=== PATIENT | female | born 1990 | race African-American/Black ===

== ENCOUNTER 2020-03-30 15:05 | Outpatient (RCR) | payer OTHER, SELFPAY ==
--- NOTE | ~2020-03-30 | US_ITS ---
US OB limited 03/30/2020 17:10 Indication: Evaluate amniotic fluid index. Decreased movements. Procedure: Real-time Limited obstetrical ultrasound using transabdominal technique Comparison: No prior studies for comparison. Findings: There is a single living intrauterine and vertex presentation. Placenta is community ambassador ior/fundal without previa. Amniotic fluid index is normal measuring 9.7 cm. heart rate 142 BPM. Impression: 1: Single living intrauterine in vertex presentation. 2: Normal ADI measures 9.7 cm (normal range for gestational age is 8.8-23.8 cm). Reviewed, dictated and finalized at location A. Impression: 1: Single living intrauterine in vertex presentation. 2: Normal ADI measures 9.7 cm (normal range for gestational age is 8.8-23.8 cm ).
--- NOTE | 2020-03-30 17:41 | PC.NURSE ---
Called ADI results to Dr. Verma.
[2020-03-30 18:28] VITALS: PULSE 88
== END 2020-05-24 15:20 | disposition home or self-care (01) ==
LOC: ANHOBOP 15:05
PROVIDERS: Visit Provider Obstetrics & Gynecology
DX: O36.8130 Decreased fetal movements, third trimester, not applicable or unspecified (principal); Z3A.31 31 weeks gestation of pregnancy
CPT/HCPCS: 59025; 76815

== ENCOUNTER 2020-04-26 16:26 | Observation (INO) | payer OTHER, SELFPAY ==
--- NOTE | 2020-04-26 16:26 | OBADM ---
This patient, Daniella Jackson, admitted to the OB room OB Post 116 for observation. Patient/family oriented to hospital policies and general routines including ID bracelet, bed and alarms, visiting hours, pain management, procedures, bathroom and other care routines, personal items, smoking policy, room service/diet, and visiting hours. Patient/Family are encouraged to report perceived risks to care and to ask questions if they do not understand what they are told or what they should do.
[2020-04-26 16:50] VITALS: BP 123/53; PULSE 97
[2020-04-26 19:11] VITALS: BMI 35.9
--- NOTE | 2020-05-17 14:09 | PM.OBTRLD ---
OB - Triage/Final Diagnosis Final Diagnosis (1) Abdominal pain affecting : Code(s): O26.899 - Other specified related conditions, unspecified trimester; R10.9 - Unspecified abdominal pain Status: Acute
== END 2020-04-26 20:41 | disposition home or self-care (01) ==
PROVIDERS: Admitting Provider Obstetrics & Gynecology; Visit Provider Student in an Organized Health Care Education/Training Program
DX: R10.9 Unspecified abdominal pain (principal); O26.899 Other specified pregnancy related conditions, unspecified trimester; Z3A.00 Weeks of gestation of pregnancy not specified
CPT/HCPCS: 84112; G0378; G0379

== ENCOUNTER 2020-05-04 11:57 | Outpatient (CLI) | payer OTHER, SELFPAY ==
--- NOTE | ~2020-05-04 | US_ITS ---
EXAMINATION: US OB limited DATE: 05/04/2020 13:54 INDICATION: Acute renal insufficiency TECHNIQUE: Real-time ultrasound of the pelvis was performed. The interpreting radiologist was not pre sent for the study. COMPARISON: None. FINDINGS: There is a single living fetus in vertex presentation. The placenta is anterior. heart rate is 145 beats per minute (bpm). The amniotic fluid index is 16.1 cm, which is normal (5th%-95%: 7.7-24.9 cm at 36 weeks estimated gestational age). IMPRESSION: 1. Single living fetus in vertex presentation with heart rate of 145 bpm. 2. Normal amniotic fluid index of 16.1 cm. Reviewed, dictated and finalized at location B.
[2020-05-04 12:20] VITALS: TEMP 36.9
[2020-05-04 14:12] VITALS: BP 120/68; PULSE 94
== END 2020-05-04 14:12 | disposition home or self-care (01) ==
LOC: ANHOBOP 13:22 → ANHLDR 13:24
PROVIDERS: Visit Provider Obstetrics & Gynecology
DX: O42.90 Premature rupture of membranes, unspecified as to length of time between rupture and onset of labor, unspecified weeks of gestation (principal); Z3A.00 Weeks of gestation of pregnancy not specified
CPT/HCPCS: 59025; 76815; 84112; 99199

== ENCOUNTER 2020-05-22 05:22 | Inpatient (IN) | payer OTHER, SELFPAY ==
[2020-05-22] VITALS (54 sets, daily range): BP systolic 93–132; BP diastolic 56–84; PULSE 58–112; RESP 16–18; TEMP 36.1–37; O2SAT 93–100; BMI 35.6
--- NOTE | 2020-05-22 05:22 | LDADM ---
This patient, Daniella Jackson, was admitted to Labor/Delivery/Recovery 120 on 05/22/20 at 05:22. Plans for labor, pain management and were discussed with patient. Patient/family oriented to hospital policies and general routines including ID bracelet, bed and alarms, visiting hours, pain management, procedures, bathroom and other care routines, personal items, smoking policy, room service/diet and guest tray routines, infant security routines, and visiting hours. Patient/Family are encouraged to report perceived risks to care and to ask questions if they do not understand what they are told or what they should do. See OBIX for further documentation.
[2020-05-22 06:10] LABS: Basophils Percent Auto 0.3 % (0.2-1.2); Eosinophils Absolute Auto 0.1 K/mm3 (0-0.3); Eosinophils Percent Auto 0.8 % (0-4.4); Hematocrit 35.8 % (37.0-47.0); Hemoglobin 11.5 g/dL (12.0-15.0); Immature Granulocyte Absolute 0.17 K/mm3 (0.00-0.031); Immature Granulocyte Percent A 1.4 % (0-0.5); Immature Platelet Fraction Pct 13.4 % (0.9-11.2); Lymphocytes Absolute Auto 2.82 K/mm3 (0.9-3.2); Lymphocytes Percent Auto 23.6 % (18.3-44.2); Mean Corpuscular HGB Conc 32.1 g/dl (32-36); Mean Corpuscular Hemoglobin 23.3 pg (26-34); Mean Corpuscular Volume 72.5 fl (80-100); Monocytes Absolute Auto 0.8 K/mm3 (0.1-0.6); Monocytes Percent Auto 6.7 % (2.6-8.5); Neutrophils Absolute Auto 8.1 K/mm3 (1.3-6.7); Neutrophils Percent Auto 67.2 % (45.5-73.1); Platelet Count Result 140 k/mm3 (150-375); Red Blood Count 4.94 M/mm3 (4.2-5.4); Red Cell Distribution Width 14.2 % (11.5-14.5)
[2020-05-22] MEDS: LACTATED RINGERS 1,000 ML 125 ML IV CONT ×2 (06:15→07:17)
[2020-05-22 06:59] LABS: HIV 1/2 Ab P24 Ag Result Negative (Negative)
--- NOTE | 2020-05-22 07:07 | WPDANESEPPF ---
Anes - Initial Pre Proc Eval Procedure: Operation Date: 05/22/20 07:30 Proposed Procedures p Primary Section - Tejas Verma MD Date/Time: 05/22/20 07:07 Surgeon: Tejas Verma MD Pre Op Diagnosis: R C/S Patient Data Age: 30 Gender: F Height: 5 ft 5 in Weight: 97 kg Last Vital Signs Temp 36.6 C 05/22/20 06:00 Pulse 91 05/22/20 06:45 BP 116/68 05/22/20 06:45 Allergies Allergy/AdvReac Type Severity Reaction Status Date / Time No Known Allergies Allergy Unknown Uncoded 05/17/20 14:02 Home Medications Medication Instructions Recorded Confirmed Type vits 75-iron 28 mg-folic 1 pkg PO DAILY 10/05/19 05/22/20 History acid 800 mcg-omega-3 oral combo pack ferrous sulfate 325 mg (65 mg 325 mg PO DAILY #30 tablet 03/01/20 05/17/20 Rx iron) tablet valacyclovir 500 mg tablet 500 mg PO Q12H #60 tablet 05/04/20 05/22/20 Rx Laboratory Tests 05/22/20 05/22/20 05/22/20 05:55 05:55 05:55 WBC 12.0 K/mm3 H K/mm3 (4.5-10.0) RBC 4.94 M/mm3 M/mm3 (4.2-5.4) Hgb 11.5 g/dL L g/dL (12.0-15.0) Hct 35.8 % L % (37.0-47.0) MCV 72.5 fl L fl (80-100) MCH 23.3 pg L pg (26-34) MCHC 32.1 g/dl g/dl (32-36) RDW 14.2 % % (11.5-14.5) Plt Count 140 k/mm3 L k/mm3 (150-375) MPV TNP Immature Gran % (Auto) 1.4 % H % (0-0.5) Neut % (Auto) 67.2 % % (45.5-73.1) Lymph % (Auto) 23.6 % % (18.3-44.2) [place] % (Auto) 6.7 % % (2.6-8.5) Eos % (Auto) 0.8 % % (0-4.4) Baso % (Auto) 0.3 % % (0.2-1.2) Lymph # (Auto) 2.82 K/mm3 K/mm3 (0.9-3.2) [place] # (Auto) 0.8 K/mm3 H K/mm3 (0.1-0.6) Eos # (Auto) 0.1 K/mm3 K/mm3 (0-0.3) Baso # (Auto) 0.0 K/mm3 K/mm3 (0.0-0.1) Abs Immat Gran (auto) 0.17 K/mm3 H K/mm3 (0.00-0.031) Absolute Neuts (auto) 8.1 K/mm3 H K/mm3 (1.3-6.7) Absolute Nucleated RBC 0.0 K/mm3 K/mm3 (0.0-0.012) Nucleated RBC % 0.0 % % (0.0-0.2) % Immature Plt Fraction 13.4 % H % (0.9-11.2) RPR Pending HIV 1&2 Ab/P24 Ag 4thGn Negative (Negative) Patient hx anesthesia problems: none Family hx anesthesia problems: none PMFSH Past Medical History Medical History Abdominal pain affecting Genital herpes affecting Vaginal delivery Family History Family History Mother Hypertension Father Hypertension Grandparent Family history of type 2 diabetes mellitus Social History Social History Smoking status: Never smoker Second hand tobacco smoke exposure: No Alcohol intake: never Substance use: never Gender identity (if verbalized by the patient): Female Spiritual care concerns: No Anes - Eval Final PreProcedure Day of Procedure 05/22/20 07:07 Patient weight: obese Heart: regular rate and rhythm Lungs: clear to auscultation Airway: Mallampati scale class II Neurological: alert and oriented Last oral intake: >/= 8 hours ASA classification: II Emergent: no Anesthetic plan: proceed Anesthesia type and monitoring: regional spinal and standard monitoring Informed Consent: The patient's anesthetic plan and its attendant risks and benefits were discussed with the patient/family/POA. Questions were solicited and answers provided to the satisfaction of the patient/family/POA.
--- NOTE | 2020-05-22 07:16 | PM.IMHP ---
H&P: HPI History of Present Illness Date/Time: 05/22/20 07:16 Chief complaint: HSV prodromal symptoms Narrative: Daniella Jackson is a 30 year old female at 39 1/7 weeks with EDC 05/28/20. She presents for primary cesearean section due to history of HSV prodromal symptoms. She has a history of chronic vulvar inflammation. During this she had episode of severe vulvar inflammation and it only responded to the Valtrex which was given after antibody screen positive for HSV. The previous cultures have been negative. She was started on suppress at 36 weeks. She started having burning and irritation in the vulvar area last week. She was informed that this could be flare up of the chronic inflammation or possible HSV. She was informed of recommendation for ceseearean delivery if prodromal HSV symptoms or lesions within a week of delivery. She desires delivery via cesearean section. HSV culture was performed on lesions on and came back negative today. She does not want chance of baby getting HSV during delivery and desires primary cesearean section. Discussed risk benefits of cesearean section. PNC also significant for resistant UTI and resistant GBS in urine culture during the . She also has anemia of and has been taking iron supplementation. Review of Systems Review of Systems: All systems reviewed & are unremarkable except as noted in HPI and below Constitutional: Constitutional: Reports no additional constitutional complaints and Denies headache(s) Eyes: Eyes: Denies spots in vision ENT: Reports system reviewed and no additional complaints, except as documented and Denies headache(s) Cardiovascular: Cardiovascular: Denies chest pain and Denies dyspnea Respiratory: Respiratory: Denies dyspnea Gastrointestinal: Gastrointestinal: Reports no additional gastrointestinal complaints Genitourinary: Genitourinary: Reports amenorrhea Musculoskeletal: Musculoskeletal: Reports no additional musculoskeletal complaints Integumentary/Breasts: Skin/Breast: Denies breast mass and Denies rash Neurologic: Denies headache(s) Psychiatric: Psychiatric: Reports no additional psychiatric complaints PMF Past Medical History Medical History Abdominal pain affecting Genital herpes affecting Vaginal delivery Family History Family History Mother Hypertension Father Hypertension Grandparent Family history of type 2 diabetes mellitus Social History Social History Smoking status: Never smoker Second hand tobacco smoke exposure: No Alcohol intake: never Substance use: never Gender identity (if verbalized by the patient): Female Spiritual care concerns: No Meds Home Medications and Allergies Home Medications Medication Instructions Recorded Confirmed Type vits 75-iron 28 mg-folic 1 pkg PO DAILY 10/05/19 05/22/20 History acid 800 mcg-omega-3 oral combo pack ferrous sulfate 325 mg (65 mg 325 mg PO DAILY #30 tablet 03/01/20 05/17/20 Rx iron) tablet valacyclovir 500 mg tablet 500 mg PO Q12H #60 tablet 05/04/20 05/22/20 Rx Allergies Allergy/AdvReac Type Severity Reaction Status Date / Time No Known Allergies Allergy Unknown Uncoded 05/17/20 14:02 Vital Signs Vital Signs - 24 hr 05/22/20 06:00 05/22/20 06:02 05/22/20 06:16 Temperature 98 F Pulse Rate 98 99 Blood Pressure 112/56 L 114/78 05/22/20 06:31 05/22/20 06:45 05/22/20 07:07 Temperature 98.0 F Pulse Rate 86 91 Blood Pressure 95/75 L 116/68 Exam Const: General: no acute distress Eyes: General: appearance normal, both eyes and all related structures Resp: Effort & Inspection: normal respiratory effort Cardio: Rate: regular rate GI: Other: Gravid no fundal tenderness no right upper q
[2020-05-22] MEDS: ceFAZolin 2 GM/D5W 50 ML 2 GM/50 ML BAG IVPB (07:18)
[2020-05-22] MEDS: OXYTOCIN 30 UNITS/NS 500 ML 30 UNITS/500 ML BAG 125 UNITS IV CONT (10:29)
[2020-05-22 11:12] LABS: Rapid Plasma Reagin Non-Reactive (NonReactive)
[2020-05-22] MEDS: ONDANSETRON INJ 4 MG/2 ML VIAL IV PUSH (12:57)
--- NOTE | 2020-05-22 13:14 | PM.PROC ---
Procedure Note - Detailed Date of procedure: 05/22/20 Pre-op diagnosis: HSV prodromal symptoms Post-op diagnosis: same Procedure performed: Primary low transverse cesearean section Description of procedure: After informed consent was obtained patient was taken to the operating room and adequate spinal anesthesia was administered. She was placed in supine position and prepped and draped in sterile fashion. heart tones were auscultated prior to a drape. Attention was turned to the abdomen and a Pfannenstiehl skin incision was made.. The subcutaneous tissue was dissected with scalpel and cautery. The fascia was incised in the midline and extended bilaterally with Gracia scissors. The fascia was from rectus muscle superiorly and inferiorly bluntly and sharply. The midline was identified the midline and the peritoneum was entered. The pelvic organs were visualized. The lower uterine segment and vesico-uterine peritoneum was visualized. A bladder flap was made. The bladder was dissected from the lower uterine segment bluntly. A low-transverse uterine incision was made and the amniotic cavity was entered. Clear fluid noted. The uterine incsion was extended bluntly. The head was delivered and then the shoulders and the rest of the baby was delivered. The was vigorously crying upon delivery. The cord was doubly clamped and cut and the infant was handed to nursery staff in attendance. Cord segment was obtained for cord gases. Cord blood was obtained. The placenta was removed manually. The uterine cavity was sponge curetted. The uterus was noted to have good tone. The uterus was exteriorized and the incision of the uterus was closed in a running locking fashion with 0 Vicryl. Figure of eight stitch with 0 Vicryl was used for hemostasis. An umbricating stitch of 0 Vicryl was then used. Hemostasis was noted. The posterior cul-de-sac was irrigated. Uterus was placed back into the abdomen. The paracolic gutters were irrigated the uterine incision was inspected and a figure of eight stitch was used for hemostasis at an area in middle of the incision. Hemostasis was noted. Interceed adhesion barrier was placed at the lower uterine segment and anterior uterus. The omentum was placed over the site. The fascia was closed in a running fashion with 0 Vicryl. Hemostasis was noted. The subcutaneous tissue was irrigated. Hemostasis noted. The skin incision was closed with 4 O Vicryl on a Keif needle. Dermabond was placed. The uterus was firm at -1 umbilicus. The QBL was 875cc. Sponge count was correct x3. The patient tolerated procedure well and was taken to recovery in stable condition. Findings: Male infant 8lb7oz, apgars 8,9, normal uterus, fallopian tubes and ovaries bilaterally. Anesthesia: spinal Surgeon: Tejas Verma MD Estimated blood loss (mL): 875 Drains: No Packing: No Pathology: none sent Complications: No immediate complications Condition: stable Disposition: floor (Recovery)
--- NOTE | 2020-05-22 14:00 | PC.NURSE ---
Consulted with patient, mother called out for assist with waking . Reviewed feeding cues, frequencies, duration of feedings, feeding elimination flow sheet, and signs of adequate intake. Demonstrated stimulation techniques to wake for feeding. Several minutes of stimulation before infant awake and showing feeding cues. Assisted with infant to breast. Reviewed positioning/alignment in cross cradle, holding breast in U hold and guided asymmetrical latch on. was able to latch correctly with first attempt. nursed eagerly, with steady draws and frequent swallowing noted. Reviewed signs of a correct latch, effective nursing and suck swallow ratio. was able to maintain latch without discomfort to mother. Nipple care reviewed. Suggested to stimulate while feeding to keep awake and nursing effectively for increased intake and to assist with maintaining deep latch. Demonstrated how to adjust latch more deeply while feeding. Instructed mother to call out for RN assistance if she is unable to latch for feeding or she has discomfort with nursing. Instructed feeding should be initiated three hours from start of last feeding or if feeding cues are noted before. Mother voiced understanding of information shared.
[2020-05-22] MEDS: DEXTROSE 5%/0.45% SOD CHL 1,000 ML 125 ML IV CONT (14:55)
--- NOTE | 2020-05-22 17:30 | PC.NURSE ---
1107 Pt admitted to second floor, room 290 per stretcher from labor and delivery after primary delivery of viable male infant at [address] Verma. Mother is a and is choosing to breast feed infant. FOB present. Couple oriented to room, staffing and procedures; admission folder reviewed. Pt's VSS and assessment WNL.
--- NOTE | 2020-05-22 19:00 | PC.NURSE ---
1230 Pt had emesis,very small amount of clear mucous and dry heaves. Calls placed to Dr. Verma, then Dr. Miller (pest control service technician today) Orders received from Dr. Miller. Zofran 4mg IVP given per order of Dr. Miller. Pt declined Toradol at this time, saying her pain was OK . Zofran effective for pt; nausea subsided. Pt encouraged to start taking po fluids slowly. [address] Verma. She discontinued the Toradol order; ordered IV Tylenol, q6h for 3 mores doses. 1500 Orders clarified per pharmacy request. Pt's po tylenol held, and if [place]orman required for pain, pt's IV Tylenol to be held.
[2020-05-23 04:45] VITALS: BP 112/76; PULSE 85; RESP 16; TEMP 36.7
[2020-05-23 05:12] LABS: Basophils Percent Auto 0.2 % (0.2-1.2); Eosinophils Absolute Auto 0.1 K/mm3 (0-0.3); Eosinophils Percent Auto 0.3 % (0-4.4); Hematocrit 29.2 % (37.0-47.0); Hemoglobin 9.7 g/dL (12.0-15.0); Immature Granulocyte Absolute 0.17 K/mm3 (0.00-0.031); Immature Granulocyte Percent A 0.9 % (0-0.5); Lymphocytes Absolute Auto 2.79 K/mm3 (0.9-3.2); Lymphocytes Percent Auto 15.1 % (18.3-44.2); Mean Corpuscular HGB Conc 33.2 g/dl (32-36); Mean Corpuscular Hemoglobin 23.4 pg (26-34); Mean Corpuscular Volume 70.5 fl (80-100); Mean Platelet Volume 11.9 fl (7.4-10.4); Monocytes Absolute Auto 1.2 K/mm3 (0.1-0.6); Monocytes Percent Auto 6.3 % (2.6-8.5); Neutrophils Absolute Auto 14.2 K/mm3 (1.3-6.7); Neutrophils Percent Auto 77.2 % (45.5-73.1); Platelet Count Result 191 k/mm3 (150-375); Red Blood Count 4.14 M/mm3 (4.2-5.4); Red Cell Distribution Width 13.5 % (11.5-14.5); White Blood Count 18.5 K/mm3 (4.5-10.0)
[2020-05-23 08:00] VITALS: BP 120/73; PULSE 89; RESP 16; TEMP 36.6; O2SAT 99
[2020-05-23] MEDS: KETOROLAC 30 MG/ML VIAL (*BKC) IV PUSH (08:10)
[2020-05-23] MEDS: Acetaminophen/HYDROcodone ELIXIR (*CRX) 7.5 MG/15 ML UDC 5 MG PO ×3 (08:10→23:29)
[2020-05-23] MEDS: KETOROLAC 30 MG/ML VIAL (*BKC) (08:13)
--- NOTE | 2020-05-23 09:30 | PC.NURSE ---
Consulted with patient, mother reports infant is eagerly latching without difficulties or discomfort. Reviewed infant feeding cues, frequencies, duration of feedings, feeding elimination flow sheet, and signs of adequate intake. Mother independently put infant to breast. Reviewed positioning/alignment in cross cradle, holding breast in U hold and guided asymmetrical latch on. was able to latch correctly with first attempt. Infant nursed eagerly, with steady draws and frequent swallowing noted. Reviewed signs of a correct latch, effective nursing and suck swallow ratio. Infant was able to maintain latch without discomfort to mother. Nipple care reviewed. Suggested to stimulate while feeding to keep infant awake and nursing effectively for increased intake and to assist with maintaining deep latch. Demonstrated how to adjust latch more deeply while feeidng. Instructed mother to call out for RN assistance if she is unable to latch infant for feeding or she has discomfort with nursing. Instructed feeding should be initiated three hours from start of last feeding or if feeding cues are noted before. Mother voiced understanding of information shared.
--- NOTE | 2020-05-23 12:32 | P.PNOB_ITS ---
OB - PN: Subj Subjective Date/time seen: 05/23/20 12:32 She states pain is not controlled right now. She denies flatus. Mild lochia. She ambulated to restroom. Had mild nausea yesterday. She is hungry now. OB - PN: Obj Data Labs CBC & Chem 7: 05/23/20 04:51 Labs: Laboratory Results - last 24 hr 05/23/20 04:51 WBC 18.5 H RBC 4.14 L Hgb 9.7 L Hct 29.2 L MCV 70.5 L MCH 23.4 L MCHC 33.2 RDW 13.5 Plt Count 191 MPV 11.9 H Immature Gran % (Auto) 0.9 H Neut % (Auto) 77.2 H Lymph % (Auto) 15.1 L [place] % (Auto) 6.3 Eos % (Auto) 0.3 Baso % (Auto) 0.2 Lymph # (Auto) 2.79 [place] # (Auto) 1.2 H Eos # (Auto) 0.1 Baso # (Auto) 0.0 Abs Immat Gran (auto) 0.17 H Absolute Neuts (auto) 14.2 H Absolute Nucleated RBC 0.0 Nucleated RBC % 0.0 OB - PN A/P Assessment and Plan (1) Encounter for postoperative care: Code(s): Z48.89 - Encounter for other specified surgical aftercare Status: Acute Assessment and Plan: POD 1 s/p primary cesearean section. Will give Toradol with oral Vicodin. Encourage ambulation. Asymptomatic anemia. Will advance diet. Time Spent With Patient Time: Total time spent is greater than 50% in coordination of care (as documented) at patient's floor/unit and/or counseling patient: Exam Const: General: comfortable and no acute distress Resp: Effort & Inspection: normal respiratory effort Auscultation: clear to auscultation bilaterally Cardio: Rate: regular rate Psych: Mental Status: mental status grossly normal Affect: normal affect
--- NOTE | 2020-05-23 14:03 | WPDANLDPN2 ---
Anes-Prog Note L&D Date/Time: 05/23/20 14:03 Comfortable throughout: section Neuraxial method: spinal Epidural/Spinal procedure site: clean & non-tender Neuro status: Neuro function grossly intact. Cardiovascular status: normal Respiratory status: normal Airway patency: baseline Mental status: baseline Post-Op hydration status: normal Vital Signs: Last Vital Signs Temp 36.6 C 05/23/20 08:00 Pulse 89 05/23/20 08:00 Resp 16 05/23/20 08:00 BP 120/73 05/23/20 08:00 Pulse Ox 99 05/23/20 08:00 Pain score (VAS): 0/10. Patient resting in bed at time of assessment, appears comfortable. Mild nausea with relief with PRN medications. I/O: Intake & Output 05/22/20 05/23/20 05/23/20 23:59 07:59 15:59 Intake Total 920 100 Output Total 500 1800 400 Balance 420 -1700 -400 Post-procedural complaints: nausea moderate, treatment effective Patient feedback: Patient satisfied with anesthetic care.
--- NOTE | 2020-05-23 14:04 | WPDANLDNPN2 ---
Anes-Prog Note L&D-Neuraxial Date/Time: 05/23/20 14:04 Neuraxial medications: intrathecal PF morphine Opiod-related complaints: nausea Patient feedback: Patient satisfied with post-operative pain management.
[2020-05-23] MEDS: DOCUSATE SODIUM LIQ 100 MG/10 ML UDC PO (17:06)
[2020-05-23] MEDS: MULTIVITS W-FE,MIN CHEWABLE TABLET 1 TABLET PO (17:06)
[2020-05-23] MEDS: FERROUS SULFATE LIQUID 325 MG/7.4 ML ELIXIR PO (17:07)
[2020-05-23] MEDS: IBUPROFEN SUSPENSION 200 MG/10 ML UDC 600 MG PO ×2 (17:41→23:29)
[2020-05-23 19:40] VITALS: BP 113/52; PULSE 88; RESP 16; TEMP 36.8
[2020-05-23] MEDS: SIMETHICONE 80 MG TAB.CHEW PO (23:29)
[2020-05-24] MEDS: SIMETHICONE 80 MG TAB.CHEW PO ×3 (05:32→19:15)
[2020-05-24] MEDS: IBUPROFEN SUSPENSION 200 MG/10 ML UDC 600 MG PO ×3 (05:32→20:25)
[2020-05-24] MEDS: Acetaminophen/HYDROcodone ELIXIR (*CRX) 7.5 MG/15 ML UDC 5 MG PO ×4 (05:37→19:15)
[2020-05-24 07:50] VITALS: BP 116/72; PULSE 88; RESP 18; TEMP 37; O2SAT 95
[2020-05-24] MEDS: FERROUS SULFATE LIQUID 325 MG/7.4 ML ELIXIR PO ×2 (08:27→17:20)
[2020-05-24] MEDS: DOCUSATE SODIUM LIQ 100 MG/10 ML UDC PO ×2 (08:27→17:20)
[2020-05-24] MEDS: MULTIVITS W-FE,MIN CHEWABLE TABLET 1 TABLET PO (08:27)
--- NOTE | 2020-05-24 14:10 | PC.NURSE ---
Consult with pt., mother states she has been bottle feeding and infant is not latching with fussiness and crying. Suggested mother give infant 5 mls by bottle then transition to breast. Mother was able to independently latch infant with appropriate positioning/alignment. Infant was able to latch correctly. nursed eagerly, with steady draws and frequent swallowing noted. Reviewed signs of a correct latch, effective nursing and suck swallow ratio. was able to maintain latch without discomfort to mother. Nipple care reviewed. Reviewed infant may be accustomed to a heavy flow from bottle, also advised to self express milk into infant's mouth before attempting latch.
--- NOTE | 2020-05-24 15:20 | PM.OBPNVD ---
OB - PN: Subj Subjective Date/time seen: 05/24/20 15:20 She had positive flatus this morning. Tolerating reg diet. Her pain is better than yesterday. She has ambulated in room without problems. OB - PN: Obj Data Labs CBC & Chem 7: 05/23/20 04:51 OB - PN A/P Assessment and Plan (1) Encounter for postoperative care: Code(s): Z48.89 - Encounter for other specified surgical aftercare Status: Acute Assessment and Plan: She is doing better. Encourage ambulation. Continue routine post op care. Time Spent With Patient Time: Total time spent is greater than 50% in coordination of care (as documented) at patient's floor/unit and/or counseling patient: Exam Const: General: comfortable and no acute distress Resp: Effort & Inspection: normal respiratory effort Auscultation: clear to auscultation bilaterally Cardio: Rate: regular rate GI: Other: soft minimal distention incision no erythema or drainage Psych: Mental Status: mental status grossly normal Affect: normal affect
[2020-05-24 19:20] VITALS: BP 120/66; PULSE 97; RESP 16; TEMP 36.9
[2020-05-25] MEDS: Acetaminophen/HYDROcodone ELIXIR (*CRX) 7.5 MG/15 ML UDC 5 MG PO (04:55)
[2020-05-25] MEDS: SIMETHICONE 80 MG TAB.CHEW PO ×3 (04:55→12:32)
[2020-05-25] MEDS: IBUPROFEN SUSPENSION 200 MG/10 ML UDC 600 MG PO ×2 (05:05→12:32)
[2020-05-25 08:00] VITALS: BP 130/77; BP 132/77; PULSE 88; RESP 18; TEMP 36.9; O2SAT 100
--- NOTE | 2020-05-25 08:02 | PM.OBPNVD ---
OB - PN: Subj Subjective Date/time seen: 05/25/20 08:02 She has adequate pain control. Positive flatus. Mild lochia. She has ambulated well. OB - PN: Obj Data Labs CBC & Chem 7: 05/23/20 04:51 OB - PN A/P Assessment and Plan (1) Encounter for postoperative care: Code(s): Z48.89 - Encounter for other specified surgical aftercare Status: Acute Assessment and Plan: Post op day 3 s/p primary cesearean section- doing well. Discharge home. Discharge precautions discussed. Time Spent With Patient Time: Total time spent is greater than 50% in coordination of care (as documented) at patient's floor/unit and/or counseling patient: Exam Const: General: comfortable and no acute distress Resp: Effort & Inspection: normal respiratory effort GI: Other: appropriate tenderness, fundus below umbilicus Extrem: Other: nontender Psych: Appearance: grossly normal
[2020-05-25] MEDS: Acetaminophen/HYDROcodone ELIXIR (*CRX) 7.5 MG/15 ML UDC 10 MG PO (08:16)
[2020-05-25] MEDS: DOCUSATE SODIUM LIQ 100 MG/10 ML UDC PO (08:17)
[2020-05-25] MEDS: MULTIVITS W-FE,MIN CHEWABLE TABLET 1 TABLET PO (08:18)
[2020-05-25] MEDS: FERROUS SULFATE LIQUID 325 MG/7.4 ML ELIXIR PO (08:18)
--- NOTE | 2020-05-25 09:00 | PC.NURSE ---
Patient was given the opportunity to view the discharge video Mother & Baby Care, The First Two Weeks and to ask questions. Patient declined viewing the video and has been given the mother/baby guide for home reference.
--- NOTE | 2020-05-25 09:02 | WPDANLDPN2 ---
Anes-Prog Note L&D Date/Time: 05/25/20 09:02 Comfortable throughout: section Neuraxial method: spinal Epidural/Spinal procedure site: clean & non-tender Neuro status: Neuro function grossly intact. Cardiovascular status: normal Respiratory status: normal Airway patency: baseline Mental status: baseline Post-Op hydration status: normal Vital Signs: Last Vital Signs Temp 36.9 C 05/24/20 19:20 Pulse 97 05/24/20 19:20 Resp 16 05/24/20 19:20 BP 120/66 05/24/20 19:20 Pulse Ox 95 05/24/20 07:50 Pain score (VAS): 0 Post-procedural complaints: nausea moderate, treatment effective Patient feedback: Patient satisfied with anesthetic care.
--- NOTE | 2020-05-25 09:02 | WPDANLDNPN2 ---
Anes-Prog Note L&D-Neuraxial Date/Time: 05/25/20 09:02 Neuraxial medications: intrathecal PF morphine Opiod-related complaints: none Patient feedback: Patient satisfied with post-operative pain management.
--- NOTE | 2020-05-25 10:45 | PC.NURSE ---
Observed mother is able to independently latch with appropriate positioning/alignment. She denies any nipple discomfort, is feeding as required and waking infant to feed if needed. has had at least 8 effective feedings in the past 24 hours, and is currently meeting outcomes for weight, output, jaundice and feeding frequencies. Mother states she feels confident to continue effective at home. Reviewed transition to breast milk, signs of adequate intake, and engorgement/relief. Instructed to call ICP if intake/output less than required. Reviewed regular medications mother is taking. Information provided per [facility]. Reviewed community resources on the [facility] website and in the Mom/Baby guide. Information on outpatient services provided. Mother has no further questions at this time.
--- NOTE | 2020-05-25 11:59 | PC.NURSE ---
Self care and infant care discharge instructions given including follow up visit date and time. Pt. verbalized understanding. No questions or concerns voiced. Very pleasant and cooperative.
[2020-05-26 08:44] VITALS: BP 128/75; PULSE 80; RESP 20; TEMP 37.4; O2SAT 100
--- NOTE | 2020-06-20 13:23 | PM.OBDSVD ---
DS: Admitting Diagnosis Admitting Diagnosis Admitting Diagnosis: HSV prodromal symptoms DS: Discharge Diagnosis Discharge Diagnosis (1) HSV-1 (herpes simplex virus 1) infection: Code(s): B00.9 - Herpesviral infection, unspecified Status: Acute OB - DS: Summary OB Procedures : Ultrasound OB Procedures Intrapartum: low cervical, transverse OB Procedures: : None Peripartum Data Procedures: Procedures Operation Date: 05/22/20 07:30 Actual Procedures Side Surgeon p Primary Section Not Applicable Tejas Verma MD Time Spent with Patient Time attestation: Total time spent providing and/or coordinating discharge services: Exam Const: General: comfortable and no acute distress Resp: Effort & Inspection: normal respiratory effort GI: Other: incision intact Psych: Mental Status: mental status grossly normal Affect: normal affect DS: Data Data Completed and Pending Completed studies during hospitalization: Pending at discharge 05/22/20 09:13 Surgical [PTH] Routine Discharge Plan Discharge Attending physician on discharge: Tejas Verma Consulting providers: Melvin Terrazas Discharging Clinician: Tejas Verma Anticipated Discharge Date/Time: 05/25/20 08:05 Patient Disposition: Home, Self-Care Activity: may shower and may drive after 2 weeks Diet: regular Discharge Instructions: May take over the counter Ibuprofen as needed for pain. 600mg every six hours as needed for pain. No lifting more than 10 pounds. Pelvic rest for 4-6 weeks. Recommend Miralax daily until regular bowel movements. Call for fever >100.4, drainage from incision or redness, leg pain and or swelling. Take iron supplement daily. Iron sulfate 325mg once a day or over the counter SloFe once daily. Take vitamin Daily. Education: Mom and Baby Guide Given to: Mother Follow-Up: Call your delivering provider's office for an appointment to be seen in: 1 Week Mom [facility] the follow-up appointment. Appointment Date/Time: May 26, 2020 at 9:00 am What to expect at your follow-up visit: Blood Pressure Check Physical Assessment Call [phone] if you are unable to keep your appointment time. BREAST CARE: * Wear a snug supportive bra. * For engorgement discomfort: Breast Feeding: * Apply warm moist washcloths * Express milk as needed to relieve engorgement * Wear loose clothing Bottle Feeding: * May apply ice packs * For sore nipples: * Identify correct latch-on * Apply warm moist washcloths before and after nursing * Air dry nipples after nursing * May apply Lansinoh cream to nipples ABDOMINAL INCISION: (if applicable) * Allow incision to air dry * Do NOT use lotions for powders on your incision * When showering, allow soap and water to run over the incision, but do not wash incision EPISIOTOMY/PERINEAL CARE: * Until bleeding stops, use your althea bottle after urinating * Change your pad frequently throughout the day * You may take sitz baths several times a day (fill your bathtub with warm water and soak for 20 minutes.) Do NOT bathe in the water * No tub baths until seen by your physician - You may shower ACTIVITY: * Rest as much as possible. * Do not exercise or lift anything heavier than your baby (such as laundry or other children.) * Avoid stairs or driving as much as possible. * Do not put anything into the vagina. No douching, tampons, or sexual activity until seen by physician. NOTIFY PHYSICIAN IF YOU HAVE ANY QUESTIONS OR IF ANY OF THE FOLLOWING SYMPTOMS OCCUR: * If your episiotomy or incision becomes red, swollen, or more painful than what you have experienced in the hospital. * If your vaginal bleeding becomes foul smelling. * If your vaginal bleeding becomes more hea
== END 2020-05-25 13:15 | disposition home or self-care (01) | DRG 788 ==
LOC: ANHLDR 05:32 → ANHOB2 11:04
PROVIDERS: Admitting Provider Obstetrics & Gynecology; Visit Provider Obstetrics & Gynecology
PROC: 10D00Z1 Extraction of Products of Conception, Low, Open Approach (ICD-10-PCS; CPT 59514; principal; 2020-05-22 07:30)
DX: O98.52 Other viral diseases complicating childbirth (principal); Z37.0 Single live birth; Z3A.39 39 weeks gestation of pregnancy; B00.9 Herpesviral infection, unspecified; O99.214 Obesity complicating childbirth; E66.9 Obesity, unspecified; O99.02 Anemia complicating childbirth; D64.9 Anemia, unspecified; O99.89 Other specified diseases and conditions complicating pregnancy, childbirth and the puerperium; R82.71 Bacteriuria
CPT/HCPCS: 36415; 85025; 85055; 86592; 86703; 86850; 86900; 86901; 88307; A9270; G0432; J0131; J0690; J1100; J1885; J2274; J2370; J2405; J2590; J7120

== ENCOUNTER 2021-05-08 11:09 | Outpatient (RCR) | payer BC, MEDICAID, SELFPAY ==
[2021-05-08 11:29] VITALS: BP 113/61; PULSE 91
[2021-05-08 12:01] VITALS: BP 112/55; PULSE 87
[2021-05-08 12:15] VITALS: BP 113/61; PULSE 90
== END 2021-07-16 09:37 | disposition home or self-care (01) ==
LOC: ANHOBPP 11:09
PROVIDERS: Visit Provider Obstetrics & Gynecology
DX: O36.5930 Maternal care for other known or suspected poor fetal growth, third trimester, not applicable or unspecified (principal); Z3A.30 30 weeks gestation of pregnancy
CPT/HCPCS: 59025

== ENCOUNTER 2021-05-30 21:20 | Observation (INO) | payer BC, MEDICAID, SELFPAY ==
[2021-05-30 21:32] VITALS: BP 131/59; PULSE 86
[2021-05-30 21:35] VITALS: BMI 36.1
[2021-05-30 21:47] VITALS: BP 128/61; PULSE 90
--- NOTE | 2021-05-30 22:09 | OBADM ---
This patient, Daniella Uribe, admitted to the OB room OB Post 115 for observation. Patient/family oriented to hospital policies and general routines including ID bracelet, bed and alarms, visiting hours, pain management, procedures, bathroom and other care routines, personal items, smoking policy, room service/diet, and visiting hours. Patient/Family are encouraged to report perceived risks to care and to ask questions if they do not understand what they are told or what they should do.
--- NOTE | 2021-06-20 10:04 | PM.OBTRLD ---
OB - Triage/Final Diagnosis Visit Information Comments/Additional reasons for admission: I have assessed the risk for this patient, Daniella Uribe, and determined that she would benefit from observation care. Final Diagnosis (1) contractions: Code(s): O47.00 - False labor before 37 completed weeks of gestation, unspecified trimester Status: Acute
== END 2021-05-30 23:14 | disposition home or self-care (01) ==
PROVIDERS: Admitting Provider Student in an Organized Health Care Education/Training Program; Visit Provider Student in an Organized Health Care Education/Training Program
DX: O47.03 False labor before 37 completed weeks of gestation, third trimester (principal); Z3A.33 33 weeks gestation of pregnancy
CPT/HCPCS: G0378; G0379

== ENCOUNTER 2021-07-10 10:50 | Outpatient (CLI) | payer BC, MEDICAID, SELFPAY ==
[2021-07-10 11:14] LABS: Hematocrit 36.4 % (37.0-47.0); Hemoglobin 11.4 g/dL (12.0-15.0); Immature Platelet Fraction Pct 7.6 % (0.9-11.2); Mean Corpuscular HGB Conc 31.3 g/dl (32-36); Mean Corpuscular Hemoglobin 22.8 pg (26-34); Mean Corpuscular Volume 72.7 fl (80-100); Platelet Count Result 189 k/mm3 (150-375); Red Blood Count 5.01 M/mm3 (4.2-5.4); White Blood Count 13.2 K/mm3 (4.5-10.0)
[2021-07-11 07:12] LABS: Rapid Plasma Reagin Non-Reactive (NonReactive)
== END 2021-07-10 10:51 | disposition home or self-care (01) ==
LOC: ANHLAB 10:54
PROVIDERS: Visit Provider Obstetrics & Gynecology
DX: O34.219 Maternal care for unspecified type scar from previous cesarean delivery (principal); Z3A.39 39 weeks gestation of pregnancy
CPT/HCPCS: 36415; 85027; 85055; 86592; 86850; 86900; 86901

== ENCOUNTER 2021-07-11 05:24 | Inpatient (IN) | payer BC, MEDICAID, SELFPAY ==
--- NOTE | 2021-06-22 16:01 | PC.NURSE ---
VERIFIED WITH OR SCHEDULE AND PATIENT--C/S ON 07/11/21 AT 0730 PATIENT GIVEN REQUISITION FOR LAB DRAW ON 07/10/21
[2021-07-11] VITALS (62 sets, daily range): BP systolic 74–128; BP diastolic 36–100; PULSE 60–89; RESP 14–20; TEMP 36.2–36.8; O2SAT 96–100; BMI 35.6
--- NOTE | 2021-07-11 05:53 | PM.IMHP ---
H&P: HPI History of Present Illness Date/Time: 07/11/21 05:53 Patient at 39 weeks scheduled for elective repeat ceserean section. PNC significant for short interval . There was growth restriction with the abdominal circumference <10% this did resolve and her testing has been reassuring and last ultrasound did not show growth restriction. She desires repeat ceserean section.There is a questionable history of HSV. She has a chronic vulvar inflammation and swabs have been negative for HSV. No issues with vulvar inflammation during this . Labs reviewed. GBS pos. Chief Complaint: elective repeat ceserean section Review of Systems Review of Systems: All systems reviewed & are unremarkable except as noted in HPI and below Constitutional: Constitutional: Reports no additional constitutional complaints and Denies headache(s) Eyes: Eyes: Denies spots in vision ENT: Reports system reviewed and no additional complaints, except as documented and Denies headache(s) Cardiovascular: Cardiovascular: Denies chest pain and Denies dyspnea Respiratory: Respiratory: Denies dyspnea Gastrointestinal: Gastrointestinal: Reports no additional gastrointestinal complaints Genitourinary: Genitourinary: Reports amenorrhea Musculoskeletal: Musculoskeletal: Reports no additional musculoskeletal complaints Integumentary/Breasts: Skin/Breast: Denies breast mass and Denies rash Neurologic: Denies headache(s) Psychiatric: Psychiatric: Reports no additional psychiatric complaints [facility] Past Medical History Medical History (Updated 07/11/21 @ 06:00 by Tejas Verma MD) Vaginal delivery x1 Surgical History Surgical History Previous section x1 Family History Family History Mother Hypertension Father Hypertension Grandparent Family history of type 2 diabetes mellitus Social History Social History Smoking status: Never smoker Second hand tobacco smoke exposure: No Alcohol intake: never Substance use: never Gender identity (if verbalized by the patient): Female Spiritual care concerns: No Meds Home Medications and Allergies Home Medications Medication Instructions Recorded Confirmed Type IGC85-MA 400 mcg-om3 35 mg-dha 25 tablet PO 12/21/20 07/10/21 History mg-epa 5 mg-fish oil chewable tablet ferrous sulfate 325 mg (65 mg 325 mg PO DAILY #90 tablet 05/08/21 07/10/21 Rx iron) tablet Allergies Allergy/AdvReac Type Severity Reaction Status Date / Time No Known Allergies Allergy Unknown Uncoded 07/10/21 09:43 Exam Const: General: no acute distress HENMT: Head: normal to inspection Eyes: General: appearance normal, both eyes and all related structures Resp: Effort & Inspection: normal respiratory effort Cardio: Rate: regular rate GI: Other: Gravid no fundal tenderness no right upper quadrant pain : External Female Exam: normal external appearance Speculum Exam - Vagina: normal appearance of the vagina Speculum Exam - Cervix: normal appearance of the cervix Skin: General skin exam: no rashes or lesions noted Neuro: Cognition (Neuro): normal cognition Extrem: General: normal to inspection Psych: Mental Status: mental status grossly normal Assessment and Plan Assessment and plan (1) delivery, delivered, current hospitalization: Code(s): O82 - Encounter for delivery without indication Status: Acute Assessment and Plan: Will proceed with repeat ceserean section.
--- NOTE | 2021-07-11 06:53 | WPDANESEPPF ---
Anes - Initial Pre Proc Eval Procedure: Operation Date: 07/11/21 07:30 Proposed Procedures p Repeat Section - Tejas Verma MD Date/Time: 07/11/21 06:53 Surgeon: Tejas Verma MD Pre Op Diagnosis: Repeat C/S Patient Data Age: 31 Gender: F Height: 1.65 m Weight: 97 kg Last Vital Signs Pulse 85 07/11/21 06:23 BP 100/61 07/11/21 06:23 Allergies Allergy/AdvReac Type Severity Reaction Status Date / Time No Known Allergies Allergy Unknown Uncoded 07/10/21 09:43 Home Medications Medication Instructions Recorded Confirmed Type HFT39-FB 400 mcg-om3 35 mg-dha 25 tablet PO 12/21/20 07/10/21 History mg-epa 5 mg-fish oil chewable tablet ferrous sulfate 325 mg (65 mg 325 mg PO DAILY #90 tablet 05/08/21 07/10/21 Rx iron) tablet Patient hx anesthesia problems: none Family hx anesthesia problems: none Results Review: All pre-operative results and documents have been reviewed as part of the pre-operative evaluation. [facility] Past Medical History Medical History (Updated 07/11/21 @ 06:00 by Tejas Verma MD) Vaginal delivery x1 Surgical History Surgical History Previous section x1 Family History Family History Mother Hypertension Father Hypertension Grandparent Family history of type 2 diabetes mellitus Social History Social History Smoking status: Never smoker Second hand tobacco smoke exposure: No Alcohol intake: never Substance use: never Gender identity (if verbalized by the patient): Female Spiritual care concerns: No Anes - Eval Final PreProcedure Day of Procedure 07/11/21 06:53 Patient weight: overweight Heart: regular rate and rhythm Lungs: clear to auscultation and normal air movement Airway: Mallampati scale class II Neurological: alert and oriented Last oral intake: >/= 8 hours ASA classification: II Emergent: no Anesthetic plan: proceed Anesthesia type and monitoring: regional spinal Results Review: All pre-operative results and documents have been reviewed as part of the pre-operative evaluation. Informed Consent: The patient's anesthetic plan and its attendant risks and benefits were discussed with the patient/family/POA. Questions were solicited and answers provided to the satisfaction of the patient/family/POA.
--- NOTE | 2021-07-11 07:04 | LDADM ---
This patient, Daniella Uribe, was admitted to Labor/Delivery/Recovery 120 on 07/11/21 at 05:24. Plans for section, pain management and were discussed with patient. Patient/family oriented to hospital policies and general routines including ID bracelet, bed and alarms, visiting hours, pain management, procedures, bathroom and other care routines, personal items, smoking policy, room service/diet and guest tray routines, infant security routines, and visiting hours. Patient/Family are encouraged to report perceived risks to care and to ask questions if they do not understand what they are told or what they should do. See [facility]BIX for further documentation.
[2021-07-11] MEDS: LACTATED RINGERS 1,000 ML 999 ML IV CONT (07:20)
--- NOTE | 2021-07-11 07:25 | WPDHPUPDATE1 ---
History and Physical Update Update Date/Time: 07/11/21 07:25 History and Physical has been reviewed, including an updated exam of the patient. There are NO changes in the patient's condition. Risks, benefits, and alternatives have been discussed and questions answered. Patient agrees to proceed with procedure.
[2021-07-11] MEDS: KETOROLAC 30 MG/ML VIAL (*BKC) IV PUSH ×2 (08:41→15:24)
[2021-07-11] MEDS: LACTATED RINGERS 1,000 ML 125 ML IV CONT (09:00)
--- NOTE | 2021-07-11 09:00 | P.OP_ITS ---
Procedure Note - Detailed Date of Procedure 07/11/21 Pre-op Diagnosis Repeat C/S Post-op Diagnosis same Procedure Performed Repeat ceserean section Surgeon Tejas Verma MD Anesthesia spinal Indications Elective repeat ceserean section. Findings normal uterus fallopian tube and ovaries, female 6lb 7oz. Description of Procedure After informed consent, risks and benefits of the procedure was discussed with the patient. The patient was taken to the operating room where she was placed in the dorsal lithotomy position with leftward tilt. After the spinal anesthesia was found to be adequate, she was then prepped and draped in the usual sterile fashion. A Pfannenstiel skin incision was made along the prior scar, enclosing areas of keloid scar tissue in an elliptical fashion, with a scalpel and carried through to the underlying layer scar to the fascia. The fascia was then incised in the midline, extending bilaterally. The fascia was dissected off the rectus muscles bluntly and sharply, dissecting scar from fascia, superiorly and inferiorly. The rectus muscles were in the midline, and peritoneum was identified and entered bluntly. The pelvic organs were visualized. The bladder blade was then inserted. The vesicouterine peritoneum was identified and entered sharply with Metzenbaum scissors and extended bilaterally and then the bladder flap was created digitally. The low transverse uterine incision was then made with the scalpel and the amniotic membranes were entered, clear fluid noted, and the incision extended with bilateral index fingers in a crescent- shaped fashion. The head was delivered and the rest of the was delivered. Female infant 6lb 7oz. The nose and mouth suctioned. The cord was clamped twice and cut. The was then handed off to the awaiting nursery staff. The placenta was then delivered manually. The uterine cavity was sponge curretted. The uterus was then exteriorized. The uterine incision was then closed with 0 vicryl in a running locked fashion. A second layer of 0 vicryl was used in an imbricating fashion. The incision was inspected, hemostasis noted. The posterior cul de sac was irrigated. The uterus was then returned to the abdomen. Bilateral gutters were cleared off all clots and debris and irrigated. The uterine incision was noted to be hemostatic. Interceed placed on uterine incision and vertically on front of uterus. The peritoneum was closed with 3.0 vicryl.The muscle bellies were inspected and noted to be hemostatic. The subfascial layer was noted to be hemostatic, and the fascia was closed with 0 Vicryl in a running fashion. The subcutaneous layer was then closed with 3-0 Vicryl. The skin was closed with dissolveable vivi. Skin dermabond applied at incision. All instruments, needle, and lap counts were correct x3. The patient was taken to the recovery room in stable condition. Estimated Blood Loss 310 IV Fluids 2,000 Urine Output 200 Drains No Packing No Pathology none sent Complications No immediate complications Condition stable Disposition floor
[2021-07-11] MEDS: OXYTOCIN 30 UNITS/NS 500 ML 30 UNITS/500 ML BAG 125 UNITS IV CONT (10:25)
[2021-07-11] MEDS: MORPHINE SULFATE (*CRX) 2 MG/ML INJ IV PUSH (10:25)
--- NOTE | 2021-07-11 11:15 | OBPPTRN ---
Patient transferred to post room # 280 per via stretcher accompanied by significant other . in level 2. PT received instructions per one to one discussion, mom baby care guide and demonstrations this shift. No barriers to learning identified. Support person present. Oriented to unit, room, information board, rooming in, admission packet and security measures. Patient verbalizes understanding.
[2021-07-11] MEDS: DEXTROSE 5%/0.45% SOD CHL 1,000 ML 125 ML IV CONT (15:24)
[2021-07-11] MEDS: ONDANSETRON INJ 4 MG/2 ML VIAL IV PUSH (15:27)
[2021-07-11] MEDS: SIMETHICONE 80 MG TAB.CHEW PO (15:30)
[2021-07-11] MEDS: diphenhydrAMINE HCl INJ 50 MG/ML VIAL 25 MG IV PUSH ×2 (15:31→23:10)
[2021-07-11] MEDS: ACETAMINOPHEN 325 MG TABLET 650 MG PO (15:38)
[2021-07-11] MEDS: IBUPROFEN 600 MG TABLET PO (23:01)
[2021-07-11] MEDS: HYDROcodone/acetaminophen (*CRX) 5-325 MG TABLET 1 TAB PO (23:01)
[2021-07-12 04:15] VITALS: BP 116/59; PULSE 82; RESP 16; TEMP 36.6
[2021-07-12 05:48] LABS: Basophils Percent Auto 0.3 % (0.2-1.2); Eosinophils Absolute Auto 0.2 K/mm3 (0-0.3); Hematocrit 30.7 % (37.0-47.0); Hemoglobin 9.6 g/dL (12.0-15.0); Immature Granulocyte Absolute 0.07 K/mm3 (0.00-0.031); Immature Granulocyte Percent A 0.7 % (0-0.5); Immature Platelet Fraction Pct 8.4 % (0.9-11.2); Lymphocytes Absolute Auto 1.81 K/mm3 (0.9-3.2); Mean Corpuscular HGB Conc 31.3 g/dl (32-36); Mean Corpuscular Volume 73.4 fl (80-100); Monocytes Absolute Auto 0.6 K/mm3 (0.1-0.6); Monocytes Percent Auto 5.5 % (2.6-8.5); Neutrophils Percent Auto 74.5 % (45.5-73.1); Platelet Count Result 146 k/mm3 (150-375); Red Blood Count 4.18 M/mm3 (4.2-5.4); Red Cell Distribution Width 14.8 % (11.5-14.5); White Blood Count 10.7 K/mm3 (4.5-10.0)
[2021-07-12 08:00] VITALS: BP 113/78; PULSE 83; RESP 18; TEMP 36.8; O2SAT 100
--- NOTE | 2021-07-12 08:15 | WPDANLDPN2 ---
Anes-Prog Note L&D Date/Time: 07/12/21 08:15 Comfortable throughout: section Neuraxial method: spinal Epidural/Spinal procedure site: clean & non-tender Neuro status: Neuro function grossly intact. Cardiovascular status: normal Respiratory status: normal Airway patency: baseline Mental status: baseline Post-Op hydration status: normal Vital Signs: Last Vital Signs Temp 36.6 C 07/12/21 04:15 Pulse 82 07/12/21 04:15 Resp 16 07/12/21 04:15 BP 116/59 L 07/12/21 04:15 Pulse Ox 100 07/11/21 16:00 Pain score (VAS): 0 I/O: Intake & Output 07/11/21 07/12/21 07/12/21 23:59 07:59 15:59 Intake Total 600 Output Total 1150 800 Balance -550 -800 Post-procedural complaints: none Patient feedback: Patient satisfied with anesthetic care.
--- NOTE | 2021-07-12 08:16 | WPDANLDNPN2 ---
Anes-Prog Note L&D-Neuraxial Date/Time: 07/12/21 08:16 Neuraxial medications: intrathecal PF morphine Opiod-related complaints: none Patient feedback: Patient satisfied with post-operative pain management.
--- NOTE | 2021-07-12 08:30 | PC.NURSE ---
PT introductions made and plan of care discussed per post op c section, pain management, breast feeding, daily care activities. PT and spouse both verbalized understanding of such care. PT received instructions per one to one discussion, mom baby care guide and demonstrations through out this shift. PT and spouse both recipients of such instructions and no barriers to learning identified at this time.
[2021-07-12] MEDS: SIMETHICONE 80 MG TAB.CHEW PO ×3 (09:15→17:36)
[2021-07-12] MEDS: Acetaminophen/HYDROcodone ELIXIR (*CRX) 7.5 MG/15 ML UDC 5 MG PO ×4 (09:15→21:05)
[2021-07-12] MEDS: IBUPROFEN SUSPENSION 200 MG/10 ML UDC 600 MG PO ×2 (09:17→17:34)
[2021-07-12] MEDS: FERROUS SULFATE LIQUID 325 MG/7.4 ML ELIXIR PO ×2 (09:17→17:36)
[2021-07-12] MEDS: DOCUSATE SODIUM 100 MG CAPSULE PO (09:19)
[2021-07-12] MEDS: MULTIVITS W-FE,MIN CHEWABLE TABLET 1 TABLET PO (09:19)
--- NOTE | 2021-07-12 09:52 | PM.OBPNVD ---
OB - PN: Subj Subjective Date/time seen: 07/12/21 09:52 She has adequate pain control. Has ambulated to the restroom. Tolerated regular diet. Bottle feeding. No leg pain. Lochia decreasing. No hypovolemic symptoms. Mild vertigo symptoms improved. OB - PN: Obj Data Labs CBC & Chem 7: 07/12/21 04:06 Labs: Laboratory Results - last 24 hr 07/12/21 04:06 WBC 10.7 H RBC 4.18 L Hgb 9.6 L Hct 30.7 L MCV 73.4 L MCH 23.0 L MCHC 31.3 L RDW 14.8 H Plt Count 146 L MPV TNP Immature Gran % (Auto) 0.7 H Neut % (Auto) 74.5 H Lymph % (Auto) 17.0 L Isabela % (Auto) 5.5 Eos % (Auto) 2.0 Baso % (Auto) 0.3 Lymph # (Auto) 1.81 Isabela # (Auto) 0.6 Eos # (Auto) 0.2 Baso # (Auto) 0.0 Abs Immat Gran (auto) 0.07 H Absolute Neuts (auto) 8.0 H Absolute Nucleated RBC 0.0 Nucleated RBC % 0.0 % Immature Plt Fraction 8.4 OB - PN A/P Assessment and Plan (1) delivery delivered: Code(s): O82 - Encounter for delivery without indication Status: Acute Assessment and Plan: She is doing well. Routine post op care. Time Spent With Patient Time: Total time spent is greater than 50% in coordination of care (as documented) at patient's floor/unit and/or counseling patient: Exam Const: General: comfortable and no acute distress Resp: Effort & Inspection: normal respiratory effort GI: Other: soft appropriate tenderness at fundus, dressing clean dry and intact Extrem: Other: nontedner, no swelling, no calf tenderness Psych: Mental Status: mental status grossly normal Affect: normal affect
--- NOTE | 2021-07-12 11:00 | PC.NURSE ---
Consult with pt., mother reports she is breast and bottle feeding, she does not think is satisfied with . Suggested mother put infant to breast first then supplement and to allow infant to feed both breasts per feeding and to assist with stimulation of supply. Reviewed milk should transition within a few days, should be more content after once her milk is in. Requested mother call out next feeding for assist with feeding.
[2021-07-12 19:28] VITALS: BP 131/79; PULSE 85; RESP 16; TEMP 36.7
[2021-07-13] MEDS: SIMETHICONE 80 MG TAB.CHEW PO ×2 (05:10→09:51)
[2021-07-13] MEDS: Acetaminophen/HYDROcodone ELIXIR (*CRX) 7.5 MG/15 ML UDC 5 MG PO (05:10)
[2021-07-13] MEDS: IBUPROFEN SUSPENSION 200 MG/10 ML UDC 600 MG PO (05:10)
[2021-07-13 07:55] VITALS: BP 110/74; PULSE 80; RESP 18; TEMP 37.3; O2SAT 100
--- NOTE | 2021-07-13 09:10 | PC.NURSE ---
Consult with pt., observed mother is able to independently latch with appropriate positioning/alignment. eagerly latches on first attempt with long rhythmical draws and frequent swallowing noted. She denies any nipple discomfort, is feeding as required and waking to feed if needed. Infant has had several effective feedings in the past 24 hours, and is currently meeting outcomes for weight, output, jaundice and feeding frequencies. Mother chooses to supplement at times if she does not feel infant is satisfied after . Mother states she may discontinue supplement once her milk is in and she feels infant is satisfied. Mother states she feels confident to continue effective with supplementation at home. Reviewed transition to breast milk, signs of adequate intake, and engorgement/relief. Instructed to call ICP if intake/output less than required. Reviewed regular medications mother is taking. Information provided per [facility]. Reviewed community resources on the [facility] website and in the Mom/Baby guide. Information on outpatient services provided. Mother has no further questions at this time. Instructed feeding should be initiated three hours from start of last feeding or if feeding cues are noted before until seen by ICP. Mother voiced understanding of information shared.
[2021-07-13] MEDS: Acetaminophen/HYDROcodone ELIXIR (*CRX) 7.5 MG/15 ML UDC 10 MG PO (09:40)
[2021-07-13] MEDS: FERROUS SULFATE LIQUID 325 MG/7.4 ML ELIXIR PO (09:42)
--- NOTE | 2021-07-13 10:07 | PM.OBPNVD ---
OB - PN: Subj Subjective Date/time seen: 07/13/21 10:07 Patient comments: pain well controlled, tolerating diet and other (Decreasing lochia.) baby status: doing well and nursing well OB - PN: Obj Data Labs CBC & Chem 7: 07/12/21 04:06 OB - PN A/P Plan day: 1 Plan: routine care Comments: Patient doing well. She wants to be discharged. Discussed discharge precautions. Time Spent With Patient Time: Total time spent is greater than 50% in coordination of care (as documented) at patient's floor/unit and/or counseling patient: Exam Const: General: comfortable and no acute distress Resp: Effort & Inspection: normal respiratory effort Psych: Mental Status: mental status grossly normal Affect: normal affect Other: Abd: fundus firm below umbilicus, nontender incision intact clean dry Ext: nontender
--- NOTE | 2021-07-13 10:08 | PM.DS ---
DS: Admitting Diagnosis Discharge Date 07/13/21 Admitting Diagnosis Elective repeat ceserean section. DS: Discharge Diagnosis Discharge Diagnosis (1) delivery delivered: Code(s): O82 - Encounter for delivery without indication Status: Acute DS: Summary Hospital Course Hospital Course: Patient admitted on 07/11/21. She had an uncomplicated repeat ceserean section. She did well postoperatively. She was ambulating without difficulty on post op day 1. Tolerating regular diet. She had adequate pain control. Asymptomatic anemia. Status at Discharge Functional status at discharge: independent ambulation Time Spent with Patient Time attestation: Total time spent providing and/or coordinating discharge services: Exam Const: General: cooperative Orientation/consciousness: oriented to person, oriented to place and oriented to time HENMT: General nose exam: Normal external nose present Eyes: General: appearance normal, both eyes and all related structures Resp: Effort & Inspection: normal respiratory effort GI: Inspection: normal to inspection : Other: fundus appropriate tender, incision intact and clean Skin: General skin exam: normal color Neuro: General: oriented to person, oriented to place and oriented to time Extrem: General: normal to inspection and no calf tenderness Psych: Appearance: grossly normal Mental Status: mental status grossly normal Discharge Plan Discharge Attending physician on discharge: Tejas Verma Consulting providers: Cynthia Freire Discharging Clinician: Tejas Verma Anticipated Discharge Date/Time: 07/13/21 10:13 Patient Disposition: Home, Self-Care Activity: may shower, no driving, may drive after 2 weeks and pelvic rest Diet: regular Wound Care Instructions: follow printed instructions and incision open to air Discharge Instructions: Pelvic rest for 4-6 weeks. May take over the counter Ibuprofen or Tylenol for pain or prescribed pain medication or drainage or redness at incision. Call if saturating more than a pad an hour, leg redness, pain and swelling, temperature>100.4. No strenuous activity. Patient Instructions: Antibiotic Form Stand Alone Forms: General Discharge Information Follow-up/Referrals: Tejas Verma MD [Physician] - 2 Weeks Discharge Medications: New hydrocodone-acetaminophen 7.5-325 mg/15 mL Solution 5 mg PO Q3-4H PRN (Reason: Pain Rated 4-6) Qty: 118 RF: 0 Continued Gummy 400 mcg-35 mg -25 mg-5 mg tablet,chewable PO RF: 0 ferrous sulfate [Feosol] 325 mg (65 mg iron) tablet 325 mg PO DAILY Qty: 90 RF: 0 Date of admission: 07/11/21 05:24 Primary Care Provider: PHYSICIAN,TUBE BENDING MACHINE OPERATOR Admitting Provider: Tejas Verma Attending physician on admission: Tejas Verma Condition: Stable
[2021-07-14 10:35] VITALS: BP 131/74; PULSE 89; RESP 20; TEMP 37.5; O2SAT 100
== END 2021-07-13 11:49 | disposition home or self-care (01) | DRG 788 ==
LOC: ANHLDR 05:27 → ANHOB2 13:53
PROVIDERS: Admitting Provider Obstetrics & Gynecology; Visit Provider Obstetrics & Gynecology
PROC: 10D00Z1 Extraction of Products of Conception, Low, Open Approach (ICD-10-PCS; CPT 59514; principal; 2021-07-11 07:30)
DX: O34.219 Maternal care for unspecified type scar from previous cesarean delivery (principal); O99.02 Anemia complicating childbirth; D64.9 Anemia, unspecified; Z3A.39 39 weeks gestation of pregnancy; Z37.0 Single live birth
CPT/HCPCS: 36415; 85025; 85055; A9270; J0131; J1200; J1885; J2270; J2274; J2370; J2405; J2590; J7120

== ENCOUNTER 2023-11-24 16:35 | Outpatient (CLI) | payer OTHER, MEDICAID, SELFPAY ==
[2023-11-24 21:21] LABS: Bacteria Urine 2+ /hpf; Non Pathogenic Casts 0-2; RBC Urine 0-2 /hpf (0-2); Squamous Epithelial Cell Urine Occasional /hpf (Few); WBC Urine 51-100 /hpf (0-3)
[2023-11-24 21:39] LABS: Appearance Urine Sl Cloudy (Clear); Color Urine Yellow (Yellow)
[2023-11-24 21:40] LABS: Bilirubin Urine Negative (Negative); Blood Urine 2+ (Negative); Glucose Urine UA Negative (Negative); Ketones Urine Negative (Negative); Nitrate Urine Negative (Negative); Protein Urine Negative (Negative)
[2023-11-24 21:41] LABS: Leukocyte Esterase Ur 2+ LEU/UL (Negative)
[2023-11-24 21:42] LABS: Add Urine Microscopic? YES
== END 2023-11-24 16:36 | disposition home or self-care (01) ==
LOC: ANHLAB 16:37
PROVIDERS: Visit Provider Obstetrics & Gynecology
DX: R39.9 Unspecified symptoms and signs involving the genitourinary system (principal)
CPT/HCPCS: 81001; 87077; 87086; 87088; 87186

== ENCOUNTER 2024-02-25 05:24 | Emergency (ER) | payer OTHER, MEDICAID, SELFPAY ==
--- NOTE | ~2024-02-25 | CT_ITS ---
CT scan of the Neck Technique: 2.5 mm axial scans were obtained through the neck after intravenous administration of 75 c c Omnipaque 350. Coronal and sagittal reconstructions of the neck were obtained. Dose reduction techn ique was used on this scan by utilizing automated exposure control and iterative reconstruction techn ique. The dose-length product (DLP) was 456.62 mGy-cm. Clinical History: Retropharyngeal versus peritonsillar abscess Findings: Mildly prominent level 2 cervical lymph nodes are present bilaterally. No peritonsillar abscess. No e vidence for retropharyngeal abscess. Parapharyngeal spaces appear normal bilaterally. The parotid and submandibular glands appear normal. The pharyngeal mucosal spaces appear normal. No soft tissue masses are seen in the neck. The thyroid gland appears normal. Images of the lung apices reveal no abnormalities. Impression: No peritonsillar or retropharyngeal abscess. Mildly prominent bilateral level 2 cervical lymph nodes, nonspecific. Reviewed, dictated and finalized at [facility]. Impression: No peritonsillar or retropharyngeal abscess. Mildly prominent bilateral level 2 cervical lymph nodes, nonspecific.
[2024-02-25 05:31] VITALS: BP 161/94; PULSE 91; RESP 15; TEMP 36.9; O2SAT 100
--- NOTE | 2024-02-25 05:41 | ED.GENADULT ---
HPI - General Adult General Chief complaint: Unspecified Stated complaint: difficulty swallowing Time Seen by Provider: 02/25/24 05:40 Source: patient Mode of arrival: ambulatory Limitations: no limitations History of Present Illness HPI narrative: [age] year presents with several days of throat pain progressing to difficulty swallowing and no difficulty opening her mouth today. she also notes that is painful to swallow. she has had symptoms primarily at night for the last few days. She does endorse that her voice sounds different. No new for medications. Denies any fevers, chills, cough, or other upper respiratory symptoms. Has not been taking it for pain. Denies being on any BP meds. Only medication is Accutane/isotretinoin. Related Data Allergies Allergy/AdvReac Type Severity Reaction Status Date / Time No Known Allergies Allergy Unknown Uncoded 08/14/23 11:32 [facility] Past Medical History Medical History Vaginal delivery x1 Surgical History Surgical History Previous section x2 Family History Family History (System 08/14/23 @ 11:32 by Ranjan Ybarra) Mother Hypertension Father Hypertension Grandparent Family history of type 2 diabetes mellitus Social History Social History (System 08/14/23 @ 11:32 by Ranjan Ybarra) Smoking status: Never smoker Second hand tobacco smoke exposure: No Alcohol intake: never Substance use: never Lack of Transportation: No Lack of Food: Never True Current Housing: I Have Housing Concerned About Future Housing: No Difficulty Paying Gas/Electric Bills: YES Difficulty Paying for Meds: No Currently Unemployed: No Education: Associate Degree Difficulty w/ Childcare or Family Care: No Gender identity (if verbalized by the patient): Female Spiritual care concerns: No Exam Narrative: GENERAL: Well-appearing, well-nourished, and in no acute distress. HEAD: Normocephalic, atraumatic. EYES: Non injected, non icteric ENT: Nares clear, no rhinorrhea or epistaxis. Mallampati Class III. With coaching/maneuvers, able to better visualize uvula which is midline. Poor visualization of rest of posterior oropharynx. Moist mucous membranes. No trismus. Trachea midline. Dysphonia with somewhat muffled voice but understandable. NECK: Supple. Trachea midline. Mild bilateral cervical lymphadenopathy. CHEST: Speaking in full sentences. No respiratory distress. HEART: Regular rate and rhythm. . ABDOMEN: Soft, nondistended. EXTREMITIES: Normal range of motion. SKIN: Warm, dry, no rash. NEURO: No focal deficits. Alert and oriented x3. PSYCH: Normal mood and affect. Course Vital Signs Vital signs: Vital Signs Temperature 98.5 F 02/25/24 05:31 Pulse Rate 91 02/25/24 05:31 Respiratory Rate 15 02/25/24 05:31 Blood Pressure 161/94 H 02/25/24 05:31 Pulse Oximetry 100 02/25/24 05:31 Oxygen Delivery Room Air 02/25/24 05:31 Temperature 98.5 F 02/25/24 05:31 Pulse Rate 91 02/25/24 05:31 Respiratory Rate 15 02/25/24 05:31 Blood Pressure 161/94 H 02/25/24 05:31 Pulse Oximetry 100 02/25/24 05:31 Oxygen Delivery Room Air 02/25/24 05:31 Medical Decision Making [facility] Narrative Medical decision making narrative: 34-year-old female presents with dysphagia and odynophagia as well dysphonia. she describes difficulty opening today but is without anthony trismus on exam. This has been preceded by nightly throat pain for the past several days but otherwise other respiratory infections or fever /chills. In the emergency department she is afebrile with vital signs notable for hypertension. Patient is given a 1 time dose dexamethasone as this has been noted to improve symptoms. will obtain CT imaging as well as strep and viral swabs. workup unremarkable other than some lymphadenopathy which is also
[2024-02-25] MEDS: dexAMETHasone 2 MG TABLET 10 MG PO (06:04)
[2024-02-25 06:08] LABS: Basophils Percent Auto 0.4 % (0.2-1.2); Eosinophils Absolute Auto 0.3 K/mm3 (0-0.3); Eosinophils Percent Auto 3.5 % (0-4.4); Hematocrit 38.1 % (37.0-47.0); Hemoglobin 12.2 g/dL (12.0-15.0); Immature Granulocyte Absolute 0.04 K/mm3 (0.00-0.031); Immature Granulocyte Percent A 0.4 % (0-0.5); Lymphocytes Absolute Auto 2.84 K/mm3 (0.9-3.2); Lymphocytes Percent Auto 30.3 % (18.3-44.2); Mean Corpuscular Hemoglobin 22.6 pg (26-34); Mean Corpuscular Volume 70.7 fl (80-100); Mean Platelet Volume 10.3 fl (7.4-10.4); Monocytes Absolute Auto 0.5 K/mm3 (0.1-0.6); Monocytes Percent Auto 5.8 % (2.6-8.5); Neutrophils Absolute Auto 5.6 K/mm3 (1.3-6.7); Neutrophils Percent Auto 59.6 % (45.5-73.1); Platelet Count Result 250 k/mm3 (150-375); Red Blood Count 5.39 M/mm3 (4.2-5.4); Red Cell Distribution Width 13.8 % (11.5-14.5); White Blood Count 9.4 K/mm3 (4.5-10.0)
[2024-02-25 06:09] LABS: Strep Group A RT-PCR NOT DETECTED (Negative)
[2024-02-25 06:18] LABS: Anion Gap 8 mmol/L (4-12); Blood Urea Nitrogen 15 mg/dL (7-17); Calcium 9.5 mg/dL (8.4-10.2); Carbon Dioxide 25 mmol/L (22-30); Chloride 106 mmol/L (98-107); Estimated CRCL calculation 113 ml/min; Estimated Glomerular Filt Rate > 60; Glucose 92 mg/dL (65-110); Potassium 3.9 mmol/L (3.4-5.0); Sodium 139 mmol/L (137-145)
[2024-02-25 06:35] LABS: Anisocytosis 1+; Hypochromasia 1+; Platelet Estimate Adequate (Adequate); Schistocytes None Seen
[2024-02-25 06:36] LABS: Estimated CRCL calculation 113 ml/min; Estimated Glomerular Filt Rate > 60
[2024-02-25 06:44] LABS: Influenza A QL RT-PCR Negative (Negative); Influenza B QL RT-PCR Negative (Negative); RSV RNA, RT-PCR Negative (Negative); SARS-CoV-2 RNA PCR Negative (Negative)
[2024-02-25] MEDS: SODIUM CHLORIDE 0.9% IV 500 ML 999 ML IV CONT (07:03)
[2024-02-25 07:07] LABS: Monoscreen Negative (Negative); Negative Monotest Control Negative (Negative); Positive Monotest Control Positive (Positive)
== END 2024-02-25 08:01 | disposition home or self-care (01) ==
PROVIDERS: Emergency Provider Student in an Organized Health Care Education/Training Program
DX: J02.9 Acute pharyngitis, unspecified (principal); R59.1 Generalized enlarged lymph nodes; Z20.822 Contact with and (suspected) exposure to COVID-19
CPT/HCPCS: 36415; 70491; 80048; 85025; 86308; 87637; 87651; 96360; 99284; J7040; J8540; Q9967